=== PATIENT | male | born 1965 | race Caucasian/White ===

== ENCOUNTER 2020-07-04 16:56 | Emergency (ER) | payer MEDICAID ==
[~2020-07-04] VITALS: Ht 193 cm; Wt 77.3 kg
[~2020-07-04 16:56] MED LIST: HYDR-4383 PO; IBUPROFEN 600MG PO; MUPI22OI TP; PANT-47 PO
[2020-07-04] MEDS ORDERED: TETanus/Pertussis (Acell)/Diphther VAC/PF (Tdap-Adult) 0.5ml syringe IMVAC ONE (18:50)
[2020-07-04 19:22] VITALS: BP 145/80
== END 2020-07-04 19:23 | disposition home or self-care (01) ==
LOC: ER 16:56
DX: S51.811A Laceration without foreign body of right forearm, initial encounter (principal); Z98.890 Other specified postprocedural states; Z72.89 Other problems related to lifestyle; Z79.2 Long term (current) use of antibiotics; Z79.899 Other long term (current) drug therapy; X58.XXXA Exposure to other specified factors, initial encounter; Y93.89 Activity, other specified; Y92.89 Other specified places as the place of occurrence of the external cause; Y99.8 Other external cause status
CPT/HCPCS: 12002; 90471; 90715; 99283

== ENCOUNTER 2020-07-16 04:36 | Emergency (ER) | payer MEDICAID ==
[~2020-07-16] VITALS: Ht 193 cm; Wt 77.3 kg
[2020-07-16 04:44] VITALS: BP 147/75
--- NOTE | 2020-07-16 05:45 | NUR ---
REMOVED 5 SUTURES FROM RIGHT FOREATM APPLIED ABX ONITMENT . X3 STERI STRIPS APPLIED
== END 2020-07-16 05:47 | disposition home or self-care (01) ==
LOC: ER 04:37
DX: S51.811D Laceration without foreign body of right forearm, subsequent encounter (principal); Z72.89 Other problems related to lifestyle; Z79.899 Other long term (current) drug therapy; Z88.8 Allergy status to other drugs, medicaments and biological substances; X58.XXXD Exposure to other specified factors, subsequent encounter
CPT/HCPCS: 99281

== ENCOUNTER 2020-08-14 12:39 | Emergency (ER) | payer MEDICAID ==
[~2020-08-14] VITALS: Ht 193 cm; Wt 77.3 kg
[2020-08-14 12:43] VITALS: BP 166/92
== END 2020-08-14 14:06 | disposition home or self-care (01) ==
LOC: ER 12:40
DX: S41.111D Laceration without foreign body of right upper arm, subsequent encounter (principal); X58.XXXD Exposure to other specified factors, subsequent encounter
CPT/HCPCS: 99281

== ENCOUNTER 2020-09-18 13:12 | Emergency (ER) | payer MEDICAID ==
[~2020-09-18] VITALS: Ht 193 cm; Wt 77.3 kg
[2020-09-18] MEDS ORDERED: normal saline 1000ML IV soln IVB ONE ×2 (13:40→14:45)
[2020-09-18] MEDS ORDERED: ondansetron/PF 4mg/2ml inj IV ONE (13:40)
[2020-09-18 14:15] LABS: BASOPHILS % (AUTO) 0.5 % (0-1); EOSINOPHILS # (AUTO) 0.1 X10'3 (0-0.9); EOSINOPHILS % (AUTO) 1.4 % (0-6); HEMOGLOBIN 15.1 g/dl (14.0-17.9); LYMPHOCYTES # (AUTO) 1.3 X10'3 (1.1-4.8); LYMPHOCYTES % (AUTO) 23.8 % (21-51); MEAN CORPUSCULAR HEMOGLOBIN 30.1 PG (27.0-31.0); MEAN CORPUSCULAR HGB CONC 33.4 g/dL (33.0-36.5); MEAN CORPUSCULAR VOLUME 90.2 FL (78-98); MONOCYTES # (AUTO) 0.4 X10'3 (0-0.9); MONOCYTES % (AUTO) 8.4 % (2-12); NEUTROPHILS # (AUTO) 3.5 X10'3 (1.8-7.7); NEUTROPHILS % (AUTO) 65.9 % (42-75); PLATELET COUNT 168 X10'3 (140-440); RED BLOOD COUNT 4.99 X10'6 (4.70-6.10); RED CELL DISTRIBUTION WIDTH 16.5 % (11.5-14.5); WHITE BLOOD COUNT 5.3 X10'3 (4.5-11.0)
[2020-09-18 14:25] LABS: ALANINE AMINOTRANSFERASE 117 U/L (12-78); ALBUMIN 4.2 G/DL (3.4-5.0); ALBUMIN/GLOBULIN RATIO 1.1 (1.1-1.5); ALKALINE PHOSPHATASE 77 IU/L (46-116); ANION GAP 5 (8-16); ASPARTATE AMINO TRANSFERASE 114 U/L (10-37); BILIRUBIN,TOTAL 0.6 MG/DL (0.1-1.0); BLOOD UREA NITROGEN 7 MG/DL (7-18); CALCIUM 9.7 MG/DL (8.5-10.1); CHLORIDE 98 MMOL/L (99-107); CREATININE 0.87 MG/DL (0.60-1.10); GLUCOSE 130 MG/DL (70-104); POTASSIUM 3.7 MMOL/L (3.5-5.1); SODIUM 133 MMOL/L (135-145); TOTAL CARBON DIOXIDE 29.8 MMOL/L (24-32); TOTAL PROTEIN 7.9 G/DL (6.4-8.2); eGFR > 90 ML/MIN
--- NOTE | 2020-09-18 14:43 | NUR ---
Pt to CT via wheelchair with tech.
[2020-09-18] MEDS ORDERED: SULF1TAB49 PO (15:41)
[2020-09-18 16:15] LABS: CLARITY,URINE CLEAR (Clear); COLOR,URINE STRAW (Yellow); GLUCOSE, URINE NEGATIVE (Neg); KETONES,URINE NEGATIVE (Neg); LEUKOCYTE ESTERASE ,URINE NEGATIVE (Neg); NITRITES, URINE NEGATIVE (Neg); OCCULT BLOOD,URINE NEGATIVE (Neg); PH,URINE 6.5 (4.8-8.0); PROTEIN,URINE NEGATIVE (Neg); UROBILINOGEN,URINE 0.2 E.U/dL (0.2-1.0)
[2020-09-18 16:16] LABS: UA COLLECTION TYPE URINAL
[2020-09-18 17:34] VITALS: BP 155/93
== END 2020-09-18 17:37 | disposition home or self-care (01) ==
LOC: ER 13:12
DX: R10.2 Pelvic and perineal pain (principal); R10.30 Lower abdominal pain, unspecified; R11.10 Vomiting, unspecified; N30.80 Other cystitis without hematuria; Z98.890 Other specified postprocedural states; Z72.89 Other problems related to lifestyle; Z88.8 Allergy status to other drugs, medicaments and biological substances; Z79.2 Long term (current) use of antibiotics; Z79.899 Other long term (current) drug therapy
CPT/HCPCS: 36415; 74176; 80053; 81003; 84145; 85025; 96361; 96374; 99284; J2405; J7030

== ENCOUNTER 2022-05-08 01:09 | Emergency (ER) | payer MEDICAID ==
[~2022-05-08] VITALS: Ht 193 cm; Wt 80.9 kg
[~2022-05-08 01:09] MED LIST changes: +ONDA4TAB6 PO
[2022-05-08 01:13] VITALS: BP 138/89
== END 2022-05-08 02:37 | disposition left against medical advice (07) ==
LOC: ER 01:10
DX: H57.89 Other specified disorders of eye and adnexa (principal); Z53.21 Procedure and treatment not carried out due to patient leaving prior to being seen by health care provider

== ENCOUNTER 2023-05-17 14:08 | Emergency (ER) | payer MEDICAID ==
[~2023-05-17] VITALS: Ht 193 cm; Wt 90.0 kg
[2023-05-17 14:29] VITALS: BP 132/78
[2023-05-17] MEDS ORDERED: ondansetron 4mg rapidly disintigrating tab PO ONE ×2 (14:40→16:00)
[2023-05-17 15:22] LABS: BASOPHILS # (AUTO) 0.1 X10'3 (0-0.2); BASOPHILS % (AUTO) 0.6 % (0-1); EOSINOPHILS # (AUTO) 0.2 X10'3 (0-0.9); EOSINOPHILS % (AUTO) 2.6 % (0-6); HEMATOCRIT 41.9 % (42.0-52.0); HEMOGLOBIN 13.9 g/dl (14.0-17.9); LYMPHOCYTES % (AUTO) 23.3 % (21-51); MEAN CORPUSCULAR HEMOGLOBIN 29.9 PG (27.0-31.0); MEAN CORPUSCULAR HGB CONC 33.3 g/dL (33.0-36.5); MEAN PLATELET VOLUME 7.2 FL (7.4-10.4); MONOCYTES # (AUTO) 0.7 X10'3 (0-0.9); MONOCYTES % (AUTO) 7.6 % (2-12); NEUTROPHILS # (AUTO) 5.8 X10'3 (1.8-7.7); NEUTROPHILS % (AUTO) 65.9 % (42-75); PLATELET COUNT 363 X10'3 (140-440); RED BLOOD COUNT 4.65 X10'6 (4.70-6.10); RED CELL DISTRIBUTION WIDTH 16.3 % (11.5-14.5); WHITE BLOOD COUNT 8.7 X10'3 (4.5-11.0)
[2023-05-17 15:41] LABS: ALANINE AMINOTRANSFERASE 50 U/L (12-78); ALBUMIN 4.1 G/DL (3.4-5.0); ALBUMIN/GLOBULIN RATIO 1.3 (1.1-1.5); ALKALINE PHOSPHATASE 41 IU/L (46-116); ANION GAP 8 (8-16); ASPARTATE AMINO TRANSFERASE 36 U/L (10-37); BILIRUBIN,TOTAL 0.5 MG/DL (0.1-1.0); BLOOD UREA NITROGEN 10 MG/DL (7-18); CALCIUM 9.4 MG/DL (8.5-10.1); CHLORIDE 104 MMOL/L (99-107); GLUCOSE 112 MG/DL (70-104); POTASSIUM 3.7 MMOL/L (3.5-5.1); SODIUM 137 MMOL/L (135-145); TOTAL CARBON DIOXIDE 24.7 MMOL/L (24-32); TOTAL PROTEIN 7.3 G/DL (6.4-8.2); eGFR 77 ML/MIN
[2023-05-17] MEDS ORDERED: ketorolac trometh. 30mg/ml inj. IM ONE (16:00)
[2023-05-17] MEDS ORDERED: ONDA4TAB12 PO (16:06)
== END 2023-05-17 16:28 | disposition home or self-care (01) ==
LOC: ER 14:09
DX: H57.12 Ocular pain, left eye (principal); Z98.42 Cataract extraction status, left eye; R11.2 Nausea with vomiting, unspecified
CPT/HCPCS: 36415; 80053; 85025; 96372; 99283; J1885

== ENCOUNTER 2023-10-14 08:09 | Inpatient (IN) | payer MEDICAID ==
[~2023-10-14] VITALS: Ht 193 cm; Wt 81.1 kg
[~2023-10-14 08:09] MED LIST changes: +ONDA4TAB12 PO
[2023-10-14 08:48] LABS: BASOPHILS % (AUTO) 0.3 % (0-1); EOSINOPHILS # (AUTO) 0.1 X10'3 (0-0.9); EOSINOPHILS % (AUTO) 0.5 % (0-6); HEMATOCRIT 43.5 % (42.0-52.0); LYMPHOCYTES % (AUTO) 30.9 % (21-51); MEAN CORPUSCULAR HEMOGLOBIN 30.2 PG (27.0-31.0); MEAN CORPUSCULAR HGB CONC 34.4 g/dL (33.0-36.5); MEAN CORPUSCULAR VOLUME 87.7 FL (78-98); MEAN PLATELET VOLUME 7.2 FL (7.4-10.4); MONOCYTES # (AUTO) 0.8 X10'3 (0-0.9); MONOCYTES % (AUTO) 8.1 % (2-12); NEUTROPHILS # (AUTO) 5.8 X10'3 (1.8-7.7); NEUTROPHILS % (AUTO) 60.2 % (42-75); PLATELET COUNT 367 X10'3 (140-440); RED BLOOD COUNT 4.96 X10'6 (4.70-6.10); RED CELL DISTRIBUTION WIDTH 14.9 % (11.5-14.5); WHITE BLOOD COUNT 9.7 X10'3 (4.5-11.0)
[2023-10-14] MEDS ORDERED: nitroGLYCERIN 1gm ointment UD TP ONE (08:55)
[2023-10-14] MEDS ORDERED: aspirin 81mg tab.chew PO ONE (08:55)
[2023-10-14] MEDS ORDERED: morphine 4 MG/ML inj SYRINge IV ONE ×2 (09:00→11:05)
[2023-10-14] MEDS ORDERED: ondansetron/PF 4mg/2ml inj IV ONE (09:00)
[2023-10-14 09:02] LABS: ALANINE AMINOTRANSFERASE 39 U/L (12-78); ALBUMIN 4.2 G/DL (3.4-5.0); ALBUMIN/GLOBULIN RATIO 1.5 (1.1-1.5); ALKALINE PHOSPHATASE 57 IU/L (46-116); ANION GAP 13 (8-16); ASPARTATE AMINO TRANSFERASE 35 U/L (10-37); BILIRUBIN,TOTAL 0.6 MG/DL (0.1-1.0); BLOOD UREA NITROGEN 13 MG/DL (7-18); BUN/CREATININE RATIO 14.3 (10.0-20.0); CALCIUM 8.9 MG/DL (8.5-10.1); CHLORIDE 101 MMOL/L (99-107); CREATININE 0.91 MG/DL (0.60-1.10); GLUCOSE 141 MG/DL (70-104); PRO BRAIN NATRIURETIC PEPTIDE 70 PG/ML (0-125); SODIUM 138 MMOL/L (135-145); TOTAL CARBON DIOXIDE 24.5 MMOL/L (24-32); eCRCL 104 ML/MIN; eGFR 86 ML/MIN
[2023-10-14 09:05] LABS: POTASSIUM 2.9 MMOL/L (3.5-5.1)
[2023-10-14] MEDS ORDERED: POTASSIUM BICARB 20meq eff tab 20 MEQ TABLET.EFF PO ONE (09:10)
[2023-10-14 09:17] LABS: D-DIMER 2.33 MG/L FEU (0-0.50)
[2023-10-14 10:44] LABS: MAGNESIUM 1.7 MG/DL (1.5-2.4)
[2023-10-14] MEDS ORDERED: iohexol 350MG/ML 100ml bottle IV ONE (10:48)
[2023-10-14] MEDS ORDERED: regadenoson 0.4mg/5ml syringe IV PRN (13:00)
[2023-10-14] MEDS ORDERED: aminophylline 250mg/10ml inj. IV PRN (13:00)
[2023-10-14] MEDS ORDERED: magnesium Cl slow-release 64mg tablet PO PRN (13:00)
[2023-10-14] MEDS ORDERED: metoprolol tartrate 1mg/ml inj IV PRN (13:00)
[2023-10-14] MEDS ORDERED: magnesium 4gm in 100ml NS 100 ML IV PRN (13:00)
[2023-10-14] MEDS ORDERED: nitroGLYCERIN 0.4mg SUBLingual tab SL PRN (13:00)
[2023-10-14] MEDS ORDERED: acetaminophen 325mg tablet PO PRN ×2 (13:00)
[2023-10-14] MEDS ORDERED: bisacodyl 10mg suppository rectal RC PRN (13:00)
[2023-10-14] MEDS ORDERED: magnesium 2GM in 50ml NS 50 ML IV PRN (13:00)
[2023-10-14] MEDS ORDERED: magnesium hydroxide 30ml (MOM) UD suspension PO PRN (13:00)
[2023-10-14] MEDS ORDERED: diphenhydrAMINE 25mg capsule PO PRN (13:00)
[2023-10-14] MEDS ORDERED: acetaminophen 650mg rectal suppository RC PRN (13:00)
[2023-10-14] MEDS ORDERED: PERFLUTREN PROTEIN-A MICROSPHR (Optison) 0.22 MG/ML 3ML VIAL IV ONE (13:00)
[2023-10-14] MEDS ORDERED: HYDROcodone/acetaminophen 5mg/325mg tablet PO PRN (13:00)
[2023-10-14] MEDS ORDERED: potassium Cl 40MEQ/1/2NS 520ml 520 ML IV PRN (13:00)
[2023-10-14] MEDS ORDERED: potassium Cl 20 mEq SR tablet PO PRN (13:00)
[2023-10-14] MEDS: normal saline 1000ml 1,000 ML IV SCH (13:19)
[2023-10-14] MEDS: atorvastatin 20mg tablet PO SCH (13:27)
[2023-10-14 13:37] LABS: HEMOGLOBIN A1C 5.7 % (4.5-6.2)
[2023-10-14] MEDS: HYDROcodone/acetaminophen 10/325mg tab PO PRN ×3 (13:37→21:57)
[2023-10-14] MEDS: mag hydrox/Alum hydrox/simeth 30ml oral suspension PO PRN ×2 (13:38→14:01)
[2023-10-14 13:46] LABS: THYROID STIMULATING HORMONE 1.05 ulU/ml (0.34-4.50)
--- NOTE | 2023-10-14 14:02 | NUR ---
Patient was given Maalox for stomach upset/heartburn but he threw up and did not got the medicine in. Another dose of Maalox was given
[2023-10-14 16:00] VITALS: O2SAT 95
--- NOTE | 2023-10-14 16:33 | NUR ---
Patient has been told repeatedly that we need his urine sample, urinal was given to him
--- NOTE | 2023-10-14 16:35 | NUR ---
Received report from ED RN, Susie
[2023-10-14 17:10] VITALS: BP 102/74; PULSE 79; RESP 13; TEMP 97.7; O2SAT 95
[2023-10-14] MEDS: docusate sod 100mg capsule PO SCH (18:10)
[2023-10-14] MEDS: potassium Cl 20 mEq SR tablet PO PRN ×2 (18:10→21:57)
[2023-10-14] MEDS: heparin, porcine 5000 units/ml vial SQ SCH (18:11)
[2023-10-14 18:30] VITALS: O2SAT 95
[2023-10-14 18:46] LABS: BILIRUBIN,URINE NEGATIVE (Neg); CLARITY,URINE CLEAR (Clear); COLOR,URINE YELLOW (Yellow); GLUCOSE, URINE NEGATIVE (Neg); KETONES,URINE NEGATIVE (Neg); LEUKOCYTE ESTERASE ,URINE NEGATIVE (Neg); NITRITES, URINE NEGATIVE (Neg); OCCULT BLOOD,URINE NEGATIVE (Neg); PH,URINE 8.5 (4.8-8.0); PROTEIN,URINE TRACE mg/dl (Neg); UROBILINOGEN,URINE 0.2 E.U/dL (0.2-1.0)
[2023-10-14 18:54] LABS: UA COLLECTION TYPE CLN CATCH MIDSTREAM
[2023-10-14 18:55] LABS: SQUAMOUS EPITHELIAL CELL,UR NONE SEEN /LPF (FEW); WBC,URINE 0-4 /HPF (0-4)
[2023-10-14 18:56] LABS: BACTERIA,URINE FEW /HPF (Neg)
[2023-10-14 19:08] LABS: URINE AMPHETAMINE SCREEN NEGATIVE (Neg); URINE BARBITUATE SCREEN NEGATIVE (Neg); URINE BENZODIAZEPINES SCREEN NEGATIVE (Neg); URINE CANNABINOID SCREEN POSITIVE (Neg); URINE COCAINE SCREEN NEGATIVE (Neg); URINE METHADONE SCREEN NEGATIVE (Neg); URINE OPIATE SCREEN POSITIVE (Neg); URINE PHENCYCLIDINE SCREEN NEGATIVE (Neg)
[2023-10-14] MEDS ORDERED: morphine 2 MG/ML inj. syringe IV PRN (19:45)
[2023-10-14] MEDS: morphine 2 MG/ML inj. syringe IV PRN (19:53)
[2023-10-14] MEDS: K and/or MAG REPLACEMENT MC SCH (20:00)
[2023-10-14] MEDS: ondansetron/PF 4mg/2ml inj IV PRN (20:38)
[2023-10-14 22:00] VITALS: BP 147/79; PULSE 74; RESP 18; TEMP 97.8; O2SAT 95
[2023-10-15] VITALS (13 sets, daily range): BP systolic 133–155; BP diastolic 67–92; PULSE 59–85; RESP 14–20; TEMP 96.7–98.4; O2SAT 94–98
[2023-10-15] MEDS: potassium Cl 20 mEq SR tablet PO PRN (01:53)
[2023-10-15] MEDS: HYDROcodone/acetaminophen 10/325mg tab PO PRN ×3 (01:54→11:51)
[2023-10-15] MEDS: normal saline 1000ml 1,000 ML IV SCH ×2 (02:20→05:44)
[2023-10-15] MEDS: ondansetron/PF 4mg/2ml inj IV PRN ×2 (02:22→09:33)
[2023-10-15 06:13] LABS: BASOPHILS % (AUTO) 0.4 % (0-1); EOSINOPHILS # (AUTO) 0.1 X10'3 (0-0.9); EOSINOPHILS % (AUTO) 0.9 % (0-6); HEMATOCRIT 40.5 % (42.0-52.0); HEMOGLOBIN 13.6 g/dl (14.0-17.9); LYMPHOCYTES # (AUTO) 2.3 X10'3 (1.1-4.8); LYMPHOCYTES % (AUTO) 31.1 % (21-51); MEAN CORPUSCULAR HEMOGLOBIN 29.8 PG (27.0-31.0); MEAN CORPUSCULAR HGB CONC 33.6 g/dL (33.0-36.5); MEAN CORPUSCULAR VOLUME 88.8 FL (78-98); MEAN PLATELET VOLUME 7.6 FL (7.4-10.4); MONOCYTES # (AUTO) 0.6 X10'3 (0-0.9); MONOCYTES % (AUTO) 7.6 % (2-12); NEUTROPHILS # (AUTO) 4.4 X10'3 (1.8-7.7); PLATELET COUNT 297 X10'3 (140-440); RED BLOOD COUNT 4.56 X10'6 (4.70-6.10); RED CELL DISTRIBUTION WIDTH 15.1 % (11.5-14.5); WHITE BLOOD COUNT 7.4 X10'3 (4.5-11.0)
[2023-10-15 06:21] LABS: ALANINE AMINOTRANSFERASE 31 U/L (12-78); ALBUMIN 3.4 G/DL (3.4-5.0); ALBUMIN/GLOBULIN RATIO 1.2 (1.1-1.5); ALKALINE PHOSPHATASE 65 IU/L (46-116); ANION GAP 5 (8-16); ASPARTATE AMINO TRANSFERASE 28 U/L (10-37); BILIRUBIN,TOTAL 0.9 MG/DL (0.1-1.0); BLOOD UREA NITROGEN 11 MG/DL (7-18); BUN/CREATININE RATIO 14.5 (10.0-20.0); CALCIUM 8.2 MG/DL (8.5-10.1); CHLORIDE 105 MMOL/L (99-107); CHOL/HDL RATIO 2.6 (0.00-4.99); CHOLESTEROL 166 MG/DL (0-200); CREATININE 0.76 MG/DL (0.60-1.10); GLUCOSE 96 MG/DL (70-104); HDL CHOLESTEROL 63 MG/DL (35-60); LDL CHOLESTEROL 80 MG/DL (50-100); MAGNESIUM 1.8 MG/DL (1.5-2.4); PHOSPHORUS 2.6 MG/DL (2.3-4.5); POTASSIUM 4.6 MMOL/L (3.5-5.1); SODIUM 137 MMOL/L (135-145); TOTAL CARBON DIOXIDE 27.1 MMOL/L (24-32); TOTAL PROTEIN 6.3 G/DL (6.4-8.2); TRIGLYCERIDES 149 MG/DL (20-135); eCRCL 125 ML/MIN; eGFR > 90 ML/MIN
--- NOTE | 2023-10-15 06:30 | NUR ---
Problems reprioritized. Patient report given, questions answered & plan of care reviewed with ADITI Quiroz.
[2023-10-15] MEDS: K and/or MAG REPLACEMENT MC SCH (07:46)
[2023-10-15] MEDS ORDERED: aspirin 81mg, enteric-coated 1 TAB TABLET.DR PO SCH (08:00)
[2023-10-15] MEDS ORDERED: metoprolol succinate 25mg (24-HOUR) SR. Tablet PO SCH (08:00)
[2023-10-15] MEDS ORDERED: atorvastatin 20mg tablet PO SCH (08:00)
[2023-10-15] MEDS: heparin, porcine 5000 units/ml vial SQ SCH (08:02)
[2023-10-15] MEDS: docusate sod 100mg capsule PO SCH (08:02)
[2023-10-15] MEDS: atorvastatin 20mg tablet PO SCH (08:03)
[2023-10-15] MEDS: morphine 2 MG/ML inj. syringe IV PRN ×2 (08:11→12:17)
--- NOTE | 2023-10-15 14:01 | NUR ---
Page Accepted promotional table spacer Message: 16A - Long - TRES scan available\ [employer] - [id number] Custom Responses: promotional table spacer Transaction number: [id number]
[2023-10-15] MEDS ORDERED: METO-395 PO (14:38)
[2023-10-15] MEDS ORDERED: ASPI-1071 PO (14:38)
[2023-10-15] MEDS ORDERED: ATOR20TA66 PO (14:38)
== END 2023-10-15 15:20 | disposition home or self-care (01) | DRG 203 ==
LOC: ER 08:10 → ED HOLD 13:04 → OBSVTOIN 13:04 → PCU 3S 16:50
PROVIDERS: ADMIT Family Medicine; ATTEND Family Medicine
PROC: B32T1ZZ Computerized Tomography (CT Scan) of Left Pulmonary Artery using Low Osmolar Contrast (ICD-10-PCS; principal; 2023-10-14)
PROC: B3201ZZ Computerized Tomography (CT Scan) of Thoracic Aorta using Low Osmolar Contrast (ICD-10-PCS; 2023-10-14)
PROC: B32S1ZZ Computerized Tomography (CT Scan) of Right Pulmonary Artery using Low Osmolar Contrast (ICD-10-PCS; 2023-10-14)
PROC: 4A02XM4 Measurement of Cardiac Total Activity, External Approach (ICD-10-PCS; 2023-10-15)
PROC: 3E033HZ Introduction of Radioactive Substance into Peripheral Vein, Percutaneous Approach (ICD-10-PCS; 2023-10-15)
DX: R07.89 Other chest pain (principal); E87.6 Hypokalemia; Z88.8 Allergy status to other drugs, medicaments and biological substances; Z87.440 Personal history of urinary (tract) infections; Z90.49 Acquired absence of other specified parts of digestive tract
CPT/HCPCS: 36415; 71045; 71275; 78452; 80053; 80061; 80305; 81001; 83036; 83735; 83880; 84100; 84443; 84484; 85025; 85379; 87081; 93017; 96374; 96375; 99285; A9500; J0280; J1644; J2270; J2405; J2785; J3490; J7030; Q9967